=== PATIENT | female | born 1930 | race Caucasian/White ===

== ENCOUNTER 2016-06-28 20:15 | Emergency (ER) | payer MEDICARE, BC ==
[~2016-06-28 20:15] MED LIST: ADULT ASPIRIN81 MG PO; ADULT LOW DOSE81 M1 PO; ALLERGY RELIEF10 MG PO; AMBIEN10 MG; AMBIEN10 MG PO; AMITRIPTYLINE H25 MG; ASPIR 8181 MG PO; ASTELIN137 MCG; AVENTYL HCL25 MG; CALCIUM 500 +1 EAC4 PO; CALCIUM CH1 TAB.CHE PO; CALCIUM CHEW; CALCIUM500 MG PO; CLARITIN10 M2 PO; CODEINE; CODEINE PO; CRESTOR; CRESTOR10 MG PO; CRESTOR5 MG PO; CYMBALTA60 M1 PO; CYMBALTA60 MG PO; DYRENIUM50 MG PO; ENALAPRIL; ENALAPRIL MALEAT5 MG PO; FIORICET/CODEINE1 EA PO; FIORINAL; FIORINAL PO; FLONASE; FLONASE16 G1; FLONASE16 GM; FLONASE16 GM NS; FOSAMAX70 MG PO; H PO; HYDROCODON-ACE1 EAC7 PO; KEFLEX500 MG PO; KRILL OIL500 MG PO; LYRICA50 MG; MAGNESIUM OXID200 MG PO; MAGNESIUM250 M2 PO; MAXZIDE 37.5 M1 EACH PO; MIRALAX12 EA PO; MIRALAX17 G1 PO; MIRALAX17 G2 PO; MULTI-VITAMIN1 EAC1 PO; MULTIVITAMIN1 CAP; MULTIVITAMIN1 TAB; MULTIVITAMIN1 TAB PO; OMEGA 3 FISH1 CAP.EC PO; OMEGA-3 KRILL1 EACH PO; OXYCODONE HCL10 MG; OXYCODONE-APAP1 CA PO; OXYCONTIN10 M1 PO; REQUIP0.5 M1 PO; REQUIP0.5 MG PO; SIMVASTATIN40 MG PO; TOPAMAX50 M3 PO; TOPAMAX50 MG; TOPAMAX50 MG PO; TOPIRAMATE50 MG PO; TRIAMTERENE; TRIAMTERENE PO; VASOTEC5 MG PO; VITAMIN B-121000 MCG PO; VITAMIN B12 PO; VITAMIN B121000 MCG PO; VITAMIN D1000 UNIT PO; VITAMIN D31000 UNI3 PO; VITAMIN D31000 UNIT PO; ZYRTEC PO; ZYRTEC10 M PO; ZYRTEC5 MG PO; [UNRECOGNIZED DRUG - OTHER]; [UNRECOGNIZED DRUG - OTHER] PO; [UNRECOGNIZED DRUG - OTHER] PO
[2016-06-28] MEDS ORDERED: METHADONE HCL10 M1 PO (20:47)
[2016-06-28] MEDS ORDERED: ERYTHROMYCIN1 GM LEFT EYE (21:55)
[2016-10-14] MEDS ORDERED: VITAMIN D31000 UNI3 PO (15:46)
[2016-10-14] MEDS ORDERED: CRESTOR10 M1 PO (15:47)
[2016-10-14] MEDS ORDERED: METHADONE HCL10 M1 PO (15:50)
[2016-10-14] MEDS ORDERED: PERCOCET 5-3251 EACH PO (15:51)
[2016-10-14] MEDS ORDERED: TOPAMAX50 M3 PO (15:55)
[2016-10-14] MEDS ORDERED: SETLAKIN 0.151 EACH (15:57)
[2016-10-14] MEDS ORDERED: MELATONIN5 M5 PO (15:57)
[2016-10-14] MEDS ORDERED: CRANBERRY PO (16:00)
[2016-10-14] MEDS ORDERED: CETIRIZINE HCL10 M1 PO (16:00)
[2016-10-14] MEDS ORDERED: TUMS200 MG PO (16:01)
[2016-10-20] MEDS ORDERED: MILK OF MAGNESIA PO (12:15)
== END 2016-06-28 22:00 ==
LOC: EDMED 20:15
DX: S05.02XA Injury of conjunctiva and corneal abrasion without foreign body, left eye, initial encounter (principal); I25.2 Old myocardial infarction; I10 Essential (primary) hypertension; I25.10 Atherosclerotic heart disease of native coronary artery without angina pectoris; Z86.718 Personal history of other venous thrombosis and embolism; Z98.49 Cataract extraction status, unspecified eye; Z88.2 Allergy status to sulfonamides; Z79.82 Long term (current) use of aspirin; Z79.899 Other long term (current) drug therapy; X58.XXXA Exposure to other specified factors, initial encounter